=== PATIENT | male | born 1965 | race Caucasian/White ===

== ENCOUNTER 2016-09-21 13:50 | Emergency (ER) | payer BC ==
[~2016-09-21] VITALS: Ht 190.5 cm; Wt 110.6 kg
[~2016-09-21 13:50] MED LIST: LISI-787 PO; METF1000 PO
[2016-09-21 13:54] VITALS: TEMP 36.6; O2SAT 96; Ht 190.5 cm; Wt 110.6 kg
[2016-09-21 14:32] VITALS: BP 128/84; PULSE 64
[2016-09-21] MEDS ORDERED: TRAM-10 PO (14:48)
--- NOTE | 2016-09-21 15:28 | EMERGENCY ROOM VISIT NOTE ---
History First contact with patient: 14:14 Chief Complaint: EAR PAIN Stated Complaint: EAR HURTS History of Present Illness The patient is a 51 year old male who presents to the Emergency Room with complaints of intermittent bilateral ear and jaw pain. The patient reports that his symptoms have been ongoing for the past 2 weeks. He does report having a recent right upper dental extraction performed at [facility]. However, he has not noticed any redness, swelling or drainage around the site of extraction. He otherwise denies any recent upper respiratory infections, runny nose, congestion or cough. He denies any difficulty with hearing, throat pain, neck pain or cough. He has not noticed any facial swelling. Upon further questioning, the patient does admit that he grinds his teeth at nighttime. He has not had any further evaluation for this condition. The patient also reports that he occasionally will hold a flashlight in his mouth while working. He reports that the pain is worse in the morning and after eating. He denies any difficulty swallowing. He currently rates his discomfort a 5 out of 10. He has taken Tylenol without relief. Review of Systems 10 system review was performed and was negative except for pertinent positives and negatives as indicated in history of present illness Past Medical/Surgical History Medical Problems: (1) Diverticulosis (2) Hyperlipidemia Nec/Nos (3) Hypertension Nos (4) Sciatica Surgical Problems: (1) History of appendectomy Social History Smoking Status: Never Smoker Alcohol Use: occasionally Marital Status: Housing Status: lives with family Occupation Status: employed Current/Historical Medications Scheduled Lisinopril/Hctz (Zestoretic 20MG/12.5MG), 0.5 TAB PO DAILY Metformin Hcl (Glucophage), 1,000 MG PO DAILY Scheduled PRN Tramadol (Ultram), 1-2 TAB PO Q4H PRN for Pain Allergies Coded Allergies: Aspirin (Verified Allergy, Unknown, 09/21/16) Ibuprofen (Verified Allergy, Unknown, 09/21/16) Uncoded Allergies: NONSTEROIDAL (Adverse Reaction, Unknown, NO NSAIDS OR TORADOL PER DR DESOUZA, 07/22/09) Physical Exam Vital Signs Date Time Temp Pulse Resp B/P Pulse Ox O2 Delivery O2 Flow Rate FiO2 09/21/16 14:32 64 18 128/84 09/21/16 13:54 36.6 69 18 143/95 96 Room Air Pain Rating (0-10): 4.0 Physical Exam CONSTITUTIONAL: Healthy and well nourished. Alert and oriented X 3 with positive affect. Patient does not appear in any acute distress on exam. HEENT: Normocephalic, atraumatic. Pupils equal, round and reactive. No facial edema noted. The patient does have tenderness to palpation of the mandible to the TMJ joint. He has mild tenderness to palpation of the lower temporal regions bilaterally. The patient has no effusion or air-fluid level in the ears. No erythema or decreased light reflexes bilaterally. No crepitance is noted when opening and closing the mouth. OROPHARYNX: Examination shows evidence for a right mandibular dental extraction. There is no bloody or purulent drainage, gingival erythema, fluctuance, pointing or drainage. NECK: Full active range of motion without discomfort. LYMPHATICS: No cervical chain, submandibular, submental or RI regular adenopathy. RESPIRATORY: Clear to auscultation bilaterally with no wheezing, crackles, rhonchi or stridor. CARDIOVASCULAR: Regular rate and rhythm with no murmurs, rubs or gallops. MUSCULOSKELETAL: Full range of motion of all joints without discomfort. INTEGUMENTARY: No rash or other significant dermatologic conditions noted. NEUROLOGIC: Facial sensations are intact. Medical Decision & Procedures ED Course Patient history and physical exam were performed. Nurse's notes were reviewed. Vital signs were reviewed and were normal. The patient's clinical exam is benign except for tenderness to palpation. I explained to the patient that his symptoms are most consistent with bruxism. I did encourage him to follow up with his dentist for further reevaluation and to discuss further management. He was encouraged to intermittently apply heat to the face. Tylenol for baseline pain relief. The patient was provided a prescription for Ultram. He was also given instructions on a liquid or soft food diet until symptoms improve. He may otherwise follow-up with his family doctor as needed for further management. The patient was happy with plan of care, and voiced understanding of all discharge instructions. Medical Decision History and clinical exam findings are not consistent with parotiditis, sialoadenitis, cellulitis, acute tonsillitis, Hector's angina, retropharyngeal abscess, otitis media/externa or dental infection. Impression Primary Impression: Bruxism (teeth grinding) Departure Information Dispostion Home / Self-Care Condition GOOD Prescriptions Tramadol (Ultram) 50 Mg Tab 1-2 TAB PO Q4H Y for Pain, #20 TAB For Initial Treatment Prov: Quinton Perez PA 09/21/16 Referrals No Doctor, Assigned Bryson Barrera M.D.([facility]) (PCP) Forms HOME CARE DOCUMENTATION FORM, IMPORTANT VISIT INFORMATION Patient Instructions Bruxism Teeth Grind, [facility] [address] Additional Instructions Intermittently apply heat to gels. Soft food diet until symptoms improve. Tylenol 1000 mg every 6-8 hours. Ultram if needed for worse pain. Suggest follow-up with your dentist to discuss further treatment.
== END 2016-09-21 15:03 | disposition home or self-care (01) ==
LOC: C.EDB 13:51 → C.EDD 15:03
DX: F45.8 Other somatoform disorders (principal); E78.5 Hyperlipidemia, unspecified; I10 Essential (primary) hypertension